=== PATIENT | female | born 1945 | race Caucasian/White ===

== ENCOUNTER → 2020-04-22 | Outpatient (CLI) | payer OTHER, BC ==
[2020-04-22 10:58] LABS: ABSOLUTE NEUTROPHILS 4.4 thou/uL (1.4-8.2); BASOPHILS 0.4 % (0.0-2.0); EOSINOPHILS 3.5 % (0.0-3.0); HEMATOCRIT 30.5 % (37.0-47.0); HEMOGLOBIN 9.9 gm/dL (12.0-15.0); LYMPHOCYTES 42.1 % (24.0-44.0); MCHC 32.5 g/dL (28.0-37.0); MONOCYTES 6.7 % (1.0-8.0); OBSERVED RETIC COUNT 2.55 % (0.6-2.6); PLATELET COUNT 258 thou/uL (150-400); POLYS 47.3 % (36.0-66.0); RBC 3.54 mil/uL (4.20-5.00); RDW 18.6 % (10.5-14.5); WBC 9.2 thou/uL (4.0-11.0)
[2020-04-22 11:04] LABS: CREATININE 0.9 mg/dL (0.6-1.0)
[2020-04-22 11:44] LABS: % SATURATION 10 % (20-39); IRON 35 ug/dL (50-170); TIBC 353 ug/dL (250-450)
[2020-04-22 11:53] LABS: FOLIC ACID 19.9 ng/mL (8.6-58.9)
[2020-04-22 14:27] LABS: ANISOCYTOSIS 1+; POLYCHROMASIA OCCASIONAL
[2020-04-24 15:09] LABS: GLOBULIN TOTAL 2.5 g/dL (2.2-3.9); M-SPIKE Not Observed g/dL (Not Observed)
--- NOTE | 2020-04-29 16:06 | PATH ---
[facility] [address] [address] PATHOLOGY RPT PROCEDURE Name: LANDON SUAREZ Room #: [facility]..#: [id number] Admission: 04/22/20 Date of : 41 Discharge: Report #: [id number] Path Case #: [id number] [facility] Accession Number: [id number] . 01 Material submitted: . BLOOD - FLOW CYTOMETRY ON BLOOD . 02 Diagnosis: Special studies report received from [facility], [address] [place] [address], [address], [place], [address], on case [id number], labeled with their number [id number], dated 04/25/2020. . Flow Cytometry: Hematologic Neoplasia Assessment . Clinical History . . Indication for Study Evaluation for chronic lymphocytic leukemia . Specimen Peripheral Blood . Viability 89% (7AAD exclusion) . 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 Comments These findings are indicative of a B-cell Chronic Lymphocytic Leukemia/Small Lymphocytic Lymphoma. The abnormal B-cells, comprising 21% of the total leukocytes are lambda restricted, co-express CD5 with CD19, CD20, CD23 and exhibit minimal detectable immunoreactivity for CD38 or FMC-7. The requested FISH studies have been ordered and will be reported separately upon completion. If clinically indicated, IgVH somatic hypermutation testing, and/or ZAP-70 testing are available. Clinical and histopathologic correlation are recommended for full interpretation. . Populations Analyzed Myeloid Blasts: 0.1% No significant blast population detected Abnormal B-cells: 21% Scatter properties compatible with small to intermediate cell size, cells characterized as: CD45+, CD5+, CD10-, CD11b-, CD11c-/+, CD19+, CD20+ (dim), CD22+ (dim), CD23+, CD38-/+, FMC7-/+, [address] [address] PATHOLOGY RPT PROCEDURE Name: LNADON SUAREZ Room #: [facility].#: [id number] Admission: 04/22/20 Date of : 41 Discharge: Report #: [id number] Path Case #: [id number] HLA-DR+, sIg lambda+ (dim) K/L= 1:33 Remaining 18% B-cells: 0.6%, polytypic/polyclonal sIg light Lymphocytes: chain pattern T-cells: no significant abnormalities of the markers tested CD4+ T-cells: 8.0% (including 1.5% CD57+ cells) CD8+ T-cells: 6.1% (including 2.4% CD57+ cells) CD4:CD8: 1.3 NK cells: 1.3% Neutrophils: 49% Mature neutrophilic phenotype without significant abnormalities of the markers tested Monocytes: 7% Monocytes are not increased and have normal expression of monocyte related antigens. Eosinophils: 4% No relative increase Basophils: 0.7% No relative increase CD45 Negative 0.2% No significant reactivity with the markers tested Events/Debris: (may represent unlysed red blood cells, erythroid precursors, platelets, debris, etc.) . Morphologic Evaluation A slide was reviewed for quality controller purposes only. . Specimen Description Total Essence YIeld: 5.60 X 10 and 6 . Reagent(s) Used CD2, CD3, CD4, CD5, CD7, CD8, CD10, CD11b, CD11c, CD13, CD14, CD16, CD19, CD20, CD22, CD23, CD33, CD34, CD38, CD45, CD56, CD57, CD64, CD117, FMC-7, HLA-DR, kappa, lambda . at [facility]. Paulo Pardo MD Pathologist . Intended Use Flow cytometry is optimally used to immunophenotypically characterize abnormal populations when they are detected. Negative flow cytometry results do not exclude lymphoma or neoplasia. Possible false negative flow cytometry results may occur in, but are not limited to, the following: neoplastic cells in Hodgkin lymphoma are not typically adequately represented by routine clinical flow cytometry; neoplastic cells may be lost or inadequately represented due to degeneration, sample processing, sampling artifact, or patchy involvement; plasma cells are typically underrepresented by flow cytometry; immature cells/blasts may be underrepresented due to hemodilution; myeloproliferative disorders and low grade myelodysplasia may not have immunophenotypic abnormalities or increased blasts. Correlation with all available clinical, laboratory, and [address] [address] PATHOLOGY RPT PROCEDURE Name: LANDON SUAREZ Room #: [facility] Enrique.#: [id number] Admission: 04/22/20 Date of : 41 Discharge: Report #: [id number] Path Case #: [id number] morphologic data is always necessary to assess for the possibility of false negative flow cytometry results and to establish a diagnosis. Each marker in this analysis was used to assess for potential antigenic abnormalities or to evaluate detected abnormalities. . Any image or images that accompany this report are chain sales representative images only and should not be used to render a diagnosis. . Disclaimer(s) This test was developed and its performance characteristics determined by [facility] [facility]. It has not been cleared or approved by the Food and Drug Administration. . Performing Labs [facility] is a business unit of [employer] a wholly-owned subsidiary of [employer]. . This test was performed at [facility]. at [address] [place] [address], [id number] - Meter Supervisor: Phil Rinaldi MD. . For inquiries, the physician may contact Lab: [phone] . A complete copy of the report is on file. . Professional services performed by [employer] at [address] [place] [address]. Technical services performed by [employer]. at [address] [place] [address]. . (CLW:amj 04/25/2020) . . . . . Special studies report received from [facility], [address] [place] [address], [address], on case [id number], labeled with their number [id number], dated 04/27/2020. . Fluorescence in situ Hybridization (FISH) Report [employer] Analysis . 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 Specimen Type: Peripheral Blood [facility] [address] [place] [address] PATHOLOGY RPT PROCEDURE Name: LANDON SUAREZ Room #: [facility].#: [id number] Admission: 04/22/20 Date of : 41 Discharge: Report #: [id number] Path Case #: [id number] . Indication for Study: Evaluate for CLL. . INTERPRETATION: Fluorescence in situ hybridization (FISH) analysis was performed on this patient's specimen using DNA probes for CLL panel. Two hundred interphase nuclei were examined for each probe and the signal patterns revealed the following: . 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 . The signal pattern obtained with the remaining probes did not differ significantly from the normal controls. . Deletion of the long arm of chromosome 13q is the most common genetic alteration detected in patients with B-cell chronic lymphocytic leukemia (B-CLL) by FISH analysis and is seen in 50 to 60% of patients. Isolated deletion 13q14.3 is considered a favorable prognostic indicator in the absence of adverse genetic markers. The presence of a deletion in both copies of chromosome 13 does not generally change this prognosis. . Genetic changes other than those assayed in this study cannot be ruled out on the basis of this testing. Correlation with cytogenetic, clinical and hematopathological findings is suggested for a complete interpretation of the results. Follow-up FISH analysis may be considered as a means to monitor the clinical course of the disease. . . See Flow Cytometry report [id number] for further information. . The following [employer] FISH analysis was performed on this patient's specimen: Probe Detection Parameters Result ISCN Centromere 12 Detects a trisomy 12 Not Detected nuc yue(P58Q1k5)(200) 13q14(DLEU1) Detects a deletion of Detected nuc yue(SUPX6y2, chromosome 13q OQWG5x2)(99/200) LIZ/11q Detects a deletion of Not Detected nuc yue(ATMx2)(200) LIZ gene TP53/17p13 Detects a deletion of Not Detected nuc yue(TP53x2)(200) TP53 gene CCND1/IGH - t Detects a CCND1/IGH Not Detected nuc yue(CCND1,IGH)x2 (11;14) translocation (200) . . at [employer] [employer]. Anusha Back, Ph.D., [address] [address] PATHOLOGY RPT PROCEDURE Name: DONNA SUAREZLeonel WOODSY Room #: [facility].#: [id number] Admission: 04/22/20 Date of : 41 Discharge: Report #: [id number] Path Case #: [id number] Director of Cytogenetics and Molecular Oncology . Methodology: The patient specimen is processed onto a glass slide. Fluorescent DNA probe(s) is(are) applied to the cells on the slide under conditions of denaturation followed by hybridization. Stringency washes are applied and the slide is subsequently counterstained. A minimum of 100 interphase nuclei are analyzed unless otherwise indicated above. . Disclaimer(s): Any image(s) that accompany this report is/are a chain sales representative image(s) only and should not be used to render a diagnosis. . This test was developed and its performance characteristics determined by [employer] [employer]. It has not been cleared or approved by the Food and Drug Administration. . Performing Labs: This Test was performed at [facility]. at [address] [place] [address]. [facility] is a business unit of [employer] a wholly-owned subsidiary of [employer]. . A complete copy of the report is on file. . Professional services performed by [facility] at [address] [place] [address], [place] [address], [place] [address]. Technical services performed by [employer]. at [address] [place] [address], [place] [address]. . (CLW:amj 04/29/2020) . . . [facility] 04/29/2020 [facility] . 02 Electronically signed: . Barbara Cedillo MD, Pathologist NPI- [id number] . 02 Pathologist provided ICD-10: Z03.89 . 02 CPT . 812530 Specimen Comment: A courtesy copy of this report has been sent to [phone] [address] PATHOLOGY RPT PROCEDURE Name: LUVIN,LANDON TANA Room #: [facility].#: [id number] Admission: 04/22/20 Date of : 41 Discharge: Report #: [id number] Path Case #: [id number] Specimen Comment: Report sent to Performed at: 01 [facility] [address] [id number] MD Garfield Duong MD Phone: [phone] Performed at: 02 [facility] [address] [address], [place] [id number] MD Janay Tovar MD Phone: [phone]
== END ==
LOC: CAT 09:57
PROVIDERS: ATTEND Internal Medicine Hematology & Oncology
DX: K80.20 Calculus of gallbladder without cholecystitis without obstruction (principal); K76.89 Other specified diseases of liver; K44.9 Diaphragmatic hernia without obstruction or gangrene; K57.30 Diverticulosis of large intestine without perforation or abscess without bleeding; I25.10 Atherosclerotic heart disease of native coronary artery without angina pectoris; M47.814 Spondylosis without myelopathy or radiculopathy, thoracic region; D25.9 Leiomyoma of uterus, unspecified; D72.820 Lymphocytosis (symptomatic); D64.9 Anemia, unspecified